=== PATIENT | male | born 1950 | race Caucasian/White ===

== ENCOUNTER → 2023-04-20 07:42 | Outpatient (CLI) | payer MEDICARE, OTHER, SELFPAY ==
--- NOTE | 2023-04-20 07:46 | DI.RAD.S_ITS ---
PROCEDURE: XR LUMBAR SPINE MIN 4V INDICATIONS: low back pain TECHNIQUE: 5 views of the lumbar spine COMPARISON: None. FINDINGS: Bones: [id number] degenerative changes. No traumatic subluxation or acute vertebral body height loss. On oblique views, no definite pars defects, although evaluation is obscured by overlapping soft tissues and osseous demineralization. Soft tissues: No suspicious calcifications. There are cholecystectomy clips. Partially seen hip arthrosis. IMPRESSION: [id number] degenerative changes. If there is high concern for further derangement, consider MRI evaluation. Dictated by: Stephen Escobar M.D. on 04/20/2023 at 12:19 Approved by: Stephen Escobar M.D. on 04/20/2023 at 12:19
--- NOTE | 2023-04-20 07:46 | DI.RAD.S_ITS ---
PROCEDURE: XR CERVICAL SPINE 4V OR 5V INDICATIONS: neck pain TECHNIQUE: 5 views of the cervical spine acquired. COMPARISON: None. FINDINGS: Bones: No acute vertebral body height loss to the level of C6. The cervical thoracic junction is not well seen, even on swimmer's view. No traumatic subluxation. There is mild reversal of the normal cervical lordosis. Moderate overall degenerative changes with arthropathy, disc space height loss, and osteophyte formation. Suggestion of [id number]-[id number] neural foraminal narrowing is seen on oblique views bilaterally at multiple levels. C1 on C2 alignment within normal limits. Soft tissues: Mildly prominent pulmonary interstitium is partially seen. IMPRESSION: Moderate spondylosis. If there is high concern for further derangement, consider MRI evaluation. Dictated by: Stephen Escobar M.D. on 04/20/2023 at 12:20 Approved by: Stephen Escobar M.D. on 04/20/2023 at 12:21
== END ==
PROVIDERS: PCP Family Medicine; Referring Provider Anesthesiology; Visit Provider Anesthesiology
DX: M47.812 Spondylosis without myelopathy or radiculopathy, cervical region (principal); M47.816 Spondylosis without myelopathy or radiculopathy, lumbar region; M54.50 Low back pain, unspecified; M54.2 Cervicalgia
CPT/HCPCS: 72050; 72110; 99214